=== PATIENT | female | born 1985 | race Caucasian/White ===

== ENCOUNTER 2021-12-29 11:25 | Outpatient (CLI) | payer BC, SELFPAY ==
[2021-12-29 13:57] LABS: Hepatitis B Surface Antigen* Negative (Negative)
[2021-12-29 14:06] LABS: HIV 1/2/P24 Combo Screen* Negative (Negative)
[2021-12-29 14:14] LABS: Hepatitis C Virus Antibody* Negative (Negative)
[2021-12-31 00:54] LABS: Rapid Plasma Reagin (RPR) Non Reactive (Non Reactive)
[2021-12-31 04:02] LABS: Varicella-Zoster Virus Ab, IgG 440.3 IV
== END 2021-12-29 11:26 | disposition home or self-care (01) ==
PROVIDERS: Visit Provider Advanced Practice Midwife
DX: Z34.91 Encounter for supervision of normal pregnancy, unspecified, first trimester (principal); Z3A.09 9 weeks gestation of pregnancy
CPT/HCPCS: 76801; 86592; 86703; 86762; 86787; 86803; 86850; 86900; 86901; 87086; 87340

== ENCOUNTER 2022-03-23 12:35 | Outpatient (CLI) | payer BC, SELFPAY | END 2022-03-23 12:36 | disposition home or self-care (01) | LOC: US 12:36 | PROVIDERS: Visit Provider Pediatrics Neonatal-Perinatal Medicine | DX: Z3A.21 21 weeks gestation of pregnancy (principal) | CPT/HCPCS: 76811 ==

== ENCOUNTER 2022-05-17 08:00 | Outpatient (CLI) | payer BC, SELFPAY | END 2022-05-17 08:01 | disposition home or self-care (01) | LOC: NFLDREF 05-20 11:00 | PROVIDERS: Visit Provider Advanced Practice Midwife | DX: Z34.90 Encounter for supervision of normal pregnancy, unspecified, unspecified trimester (principal) | CPT/HCPCS: 82951; 82952 ==

== ENCOUNTER 2022-06-07 09:19 | Outpatient (CLI) | payer BC, SELFPAY ==
--- NOTE | 2022-06-07 09:15 | CRLHL7_ITS ---
For Patients: As a result of the Cures Act, medical imaging exams and procedure reports are released immediately into your electronic medical record. You may view this report before your referring provider. If you have questions, please contact your health care provider. OB ULTRASOUND FERNANDEZ by LMP: 08/01/2022. GA: 32 w, 1 d. Single. Comparison: 03/23/2022. INDICATION: Follow-up placenta location. CERVIX: Visualized. Measurement: 5.8 cm. POSITIONING: Breech. AMNIOTIC FLUID: 6.5 cm. PLACENTA: Technique: Transabdominal. PLACENTA POSITION: Posterior. DOPPLER: heart rate: 139 bpm. IMPRESSION: Placenta edge is located 6.4 cm from the internal os. Elvia Sheridan M.D. Diagnostic/Breast Radiologist [email or web address] IBANP/bart jchip/Dictated by: Elvia Sheridan MD @ 06/07/2022 10:27:00 AM (Electronically Signed)
== END 2022-06-07 09:20 | disposition home or self-care (01) ==
LOC: US 09:19
PROVIDERS: Visit Provider Advanced Practice Midwife
DX: O09.523 Supervision of elderly multigravida, third trimester (principal); Z3A.32 32 weeks gestation of pregnancy
CPT/HCPCS: 76816

== ENCOUNTER 2022-07-07 14:45 | Outpatient (CLI) | payer BC, SELFPAY | END 2022-07-07 14:46 | disposition home or self-care (01) | LOC: NFLDREF 07-09 09:14 | PROVIDERS: Visit Provider Obstetrics & Gynecology | DX: Z34.93 Encounter for supervision of normal pregnancy, unspecified, third trimester (principal); Z3A.36 36 weeks gestation of pregnancy | CPT/HCPCS: 87081; 87653 ==

== ENCOUNTER 2023-01-09 13:00 | Outpatient (RCR) | payer BC, SELFPAY | END 2023-03-30 13:01 | disposition home or self-care (01) | PROVIDERS: Visit Provider Advanced Practice Midwife | DX: N81.89 Other female genital prolapse (principal); M62.08 Separation of muscle (nontraumatic), other site; N39.3 Stress incontinence (female) (male); R27.8 Other lack of coordination; Z51.89 Encounter for other specified aftercare | CPT/HCPCS: 97110; 97112; 97140; 97161; 97535 ==